=== PATIENT | female | born 1960 | race Caucasian/White ===

== ENCOUNTER 2020-10-01 10:39 | Emergency (ER) | payer OTHER, SELFPAY ==
[2020-10-01] MEDS ORDERED: Iopamidol 370 76% 100 ML VIAL ONE (11:48)
[2020-10-01 12:22] LABS: Hemoglobin 14.5 g/dL (12.0-16.0); Mean Corpuscular HGB CONC 32.3 g/dL (32.0-36.0); Mean Corpuscular Hemoglobin 30.9 pg (27.0-31.0); Mean Corpuscular Volume 95.5 fL (78.0-98.0); Mean Platelet Volume 6.8 fL (7.4-10.4); Platelet Count 229 thou/uL (130-400); RBC Distribution Width 11.6 % (11.5-14.5); White Blood Cell (WBC) Count 8.2 thou/uL (4.8-10.8)
[2020-10-01] MEDS ORDERED: Pantoprazole 40 MG VIAL ONE (12:25)
[2020-10-01] MEDS ORDERED: Sodium Chloride 0.9% 500 ML ONE (12:25)
[2020-10-01 12:26] LABS: Band 4 % (5-11); Eosinophils 1 % (0-10); Lymphocytes 23 % (21-51); MDiff Complete? YES; Manual Diff?? YES; Monocytes 5 % (0-10); Neutrophil 67 % (42-75)
[2020-10-01 12:27] LABS: Anisocytosis SLIGHT = 6-15 cells (100X) (0-5/hpf); Platelet Morphology Comment Appears Adequate
[2020-10-01 12:29] LABS: CK (CPK) 63 U/L (29-168); CRP (Inflammatory) Less than 0.50 mg/dL (= or < 0.5)
[2020-10-01 12:31] LABS: ALT (SGPT) 15 U/L (8-55); AST (SGOT) 21 U/L (5-34); Albumin 4.1 g/dL (3.5-5.0); Alkaline Phosphatase 74 U/L (40-110); Anion Gap 15 mmol/L (10-20); BUN (Urea Nitrogen) 12 mg/dL (9.8-20.1); Bilirubin, Total 0.7 mg/dL (0.2-1.2); Calc. Creatinine Clearance 0 mL/min (70-130); Calcium 9.2 mg/dL (7.8-10.44); Carbon Dioxide 23 mmol/L (22-29); Chloride 104 mmol/L (98-107); Globulin 2.7 g/dL (2.4-3.5); Glucose 86 mg/dL (70-105); Lipase 69 U/L (8-78); Protein, Total 6.8 g/dL (6.0-8.3); Sodium 138 mmol/L (136-145)
== END 2020-10-01 13:55 | disposition home or self-care (01) ==
LOC: MADERS 10:39
DX: R10.13 Epigastric pain (principal); E03.9 Hypothyroidism, unspecified
CPT/HCPCS: 74022; 74177; 80053; 82150; 82550; 83690; 84484; 85025; 86140; 93005; 96374; C9113; J7030; Q9967

== ENCOUNTER 2021-08-22 10:17 | Outpatient (CLI) | payer OTHER | END 2021-08-22 10:18 | disposition home or self-care (01) | LOC: MADLAB 10:17 → MADRAD 10:18 | PROVIDERS: ATTEND Physician Assistant | DX: M47.812 Spondylosis without myelopathy or radiculopathy, cervical region (principal) | CPT/HCPCS: 72040 ==

== ENCOUNTER 2023-02-06 10:26 | Outpatient (CLI) | payer OTHER | END 2023-02-06 10:27 | disposition home or self-care (01) | LOC: MADRAD 10:26 | PROVIDERS: ATTEND Physician Assistant | DX: R10.2 Pelvic and perineal pain (principal) | CPT/HCPCS: 72170 ==